=== PATIENT | male | born 1965 | race Caucasian/White ===

== ENCOUNTER 2021-11-30 09:17 | Inpatient (IN) | payer MEDICAID, OTHER ==
[2021-11-30 10:30] LABS: Basophils # (A) 0.1 k/uL (0-0.2); Basophils % (A) 1 %; Eosinophils # (A) 0.1 k/uL (0-0.7); Eosinophils % (A) 1 %; HCT 54.7 % (39.0-53.0); HGB 18.3 gm/dL (13.0-17.5); Lymphocytes # (A) 1.6 k/uL (1.0-4.8); Lymphocytes % (A) 14 %; MCH 30.3 pg (25.0-35.0); MCHC 33.5 g/dL (31.0-37.0); MCV 90.5 fL (80.0-100.0); Mean Platelet Volume 7.3; Monocytes # (A) 0.5 k/uL (0-1.0); Monocytes % (A) 4 %; Neutrophils # (A) 9.3 k/uL (1.3-7.7); Neutrophils % (A) 80 %; Platelet Count 439 k/uL (150-450); RBC 6.04 m/uL (4.30-5.90); RDW 12.7 % (11.5-15.5); WBC 11.7 k/uL (3.8-10.6)
[2021-11-30 10:40] LABS: ALT 27 U/L (4-49); AST 29 U/L (17-59); African American GFR (CKD) >90 (>60 ml/min/1.73 sqM); Albumin 4.5 g/dL (3.5-5.0); Alkaline Phosphatase 89 U/L (38-126); Anion Gap 9 mmol/L; Blood Urea Nitrogen 15 mg/dL (9-20); Calcium 9.1 mg/dL (8.4-10.2); Carbon Dioxide 25 mmol/L (22-30); Chloride 105 mmol/L (98-107); Glucose 105 mg/dL (74-99); Non-African American GFR(CKD) >90 (>60 ml/min/1.73 sqM); Potassium 4.2 mmol/L (3.5-5.1); Sodium 139 mmol/L (137-145); Total Bilirubin 0.7 mg/dL (0.2-1.3); Total Protein 7.8 g/dL (6.3-8.2)
[2021-11-30 10:48] LABS: Amphetamine Screen,Urine Not Detected (NotDetected); Barbiturate Screen,Urine Not Detected (NotDetected); Benzodiazepines Screen,Urine Not Detected (NotDetected); Cocaine Screen,Urine Not Detected (NotDetected); Methadone Screen, Urine Not Detected (NotDetected); Opiate Screen,Urine Not Detected (NotDetected); Oxycodone Screen, Urine Not Detected (NotDetected); Phencyclidine Screen,Urine Not Detected (NotDetected); Tricyclic Antidepressant,Urine Not Detected (NotDetected); Urn Cannabinoid Scrn Not Detected (NotDetected)
--- NOTE | 2021-11-30 12:20 | ED ---
Psych HPI - General Chief Complaint: Psychiatric Symptoms Stated Complaint: Mental Health Time Seen by Provider: 11/30/21 09:30 Source: patient, EMS, RN notes reviewed Mode of arrival: EMS Limitations: no limitations - History of Present Illness Initial Comments: This a 56-year-old male presents emergency Department with chief complaint of needing psychiatric help. Patient has been having hallucinations, hearing voices. 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 He does admit that his been off his psychiatric medications. - Related Data Home Medications Medication Instructions Recorded Confirmed Fluoride (Sodium) [Sodium Fluoride 1 applic DENTAL BID 11/30/21 11/30/21 5000 Plus] traZODone HCL 50 mg PO HS 11/30/21 11/30/21 Allergies Allergy/AdvReac Type Severity Reaction Status Date / Time No Known Allergies Allergy Verified 11/30/21 11:46 Review of Systems ROS Statement: Those systems with pertinent positive or pertinent negative responses have been documented in the HPI. ROS Other: All systems not noted in ROS Statement are negative. Past Medical History Past Medical History: No Reported History History of Any Multi-Drug Resistant Organisms: None Reported Past Surgical History: No Surgical Hx Reported Past Psychological History: Schizophrenia Smoking Status: Current every day smoker Past Alcohol Use History: None Reported Past Drug Use History: None Reported General Exam Limitations: altered mental status General appearance: alert, in no apparent distress Head exam: Present: atraumatic, normocephalic, normal inspection Eye exam: Present: normal appearance, PERRL, EOMI. Absent: scleral icterus, conjunctival injection, periorbital swelling ENT exam: Present: normal exam, normal oropharynx, mucous membranes moist Neck exam: Present: normal inspection, full ROM. Absent: tenderness, meningismus, lymphadenopathy Respiratory exam: Present: normal lung sounds bilaterally. Absent: respiratory distress, wheezes, rales, rhonchi, stridor Cardiovascular Exam: Present: regular rate, normal rhythm, normal heart sounds. Absent: systolic murmur, diastolic murmur, rubs, gallop, clicks Neurological exam: Present: alert Psychiatric exam: Absent: normal affect, normal mood Skin exam: Present: warm, dry, intact, normal color. Absent: rash Course Vital Signs 11/30/21 09:25 Pulse Rate 85 Respiratory 18 Rate Blood Pressure 131/82 O2 Sat by Pulse 97 Oximetry Medical Decision Making - Medical Decision Making Patient evaluated by EPS case discussed with psychiatrist recommends patient be admitted for psychiatric services. - Lab Data Result diagrams: 11/30/21 10:12 11/30/21 10:12 Lab Results 11/30/21 11/30/21 11/30/21 Range/Units 10:12 10:12 10:12 WBC 11.7 H (3.8-10.6) k/uL RBC 6.04 H (4.30-5.90) m/uL Hgb 18.3 H (13.0-17.5) gm/dL Hct 54.7 H (39.0-53.0) % MCV 90.5 (80.0-100.0) fL MCH 30.3 (25.0-35.0) pg MCHC 33.5 (31.0-37.0) g/dL RDW 12.7 (11.5-15.5) % Plt Count 439 (150-450) k/uL MPV 7.3 Neutrophils % 80 % Lymphocytes % 14 % Monocytes % 4 % Eosinophils % 1 % Basophils % 1 % Neutrophils # 9.3 H (1.3-7.7) k/uL Lymphocytes # 1.6 (1.0-4.8) k/uL Monocytes # 0.5 (0-1.0) k/uL Eosinophils # 0.1 (0-0.7) k/uL Basophils # 0.1 (0-0.2) k/uL Sodium 139 (137-145) mmol/L Potassium 4.2 (3.5-5.1) mmol/L Chloride 105 (98-107) mmol/L Carbon Dioxide 25 (22-30) mmol/L Anion Gap 9 mmol/L BUN 15 (9-20) mg/dL Creatinine 0.92 (0.66-1.25) mg/dL Est GFR (CKD-EPI)AfAm >90 (>60 ml/min/1.73 sqM) Est GFR (CKD-EPI)NonAf >90 (>60 ml/min/1.73 sqM) Glucose 105 H (74-99) mg/dL Calcium 9.1 (8.4-10.2) mg/dL Total Bilirubin 0.7 (0.2-1.3) mg/dL AST 29 (17-59) U/L ALT 27 (4-49) U/L Alkaline Phosphatase 89 (38-126) U/L Total Protein 7.8 (6.3-8.2) g/dL Albumin 4.5 (3.5-5.0) g/dL Urine Opiates Screen Not Detected (NotDetected) Ur Oxycodone Screen Not Detected (NotDetected) Urine Methadone Screen Not Detected (NotDetected) Ur Propoxyphene Screen Not Detected (NotDetected) Ur Barbiturates Screen Not Detected (NotDetected) U Tricyclic Antidepress Not Detected (NotDetected) Ur Phencyclidine Scrn Not Detected (NotDetected) Ur Amphetamines Screen Not Detected (NotDetected) U Methamphetamines Scrn Not Detected (NotDetected) U Benzodiazepines Scrn Not Detected (NotDetected) Urine Cocaine Screen Not Detected (NotDetected) U Marijuana (THC) Screen Not Detected (NotDetected) Disposition Clinical Impression: Acute psychosis Disposition: TRANSFER TO PSYCH HOSP/UNIT Condition: Fair Referrals: None,Stated [Primary Care Provider] - 1-2 days
[2021-12-01] MEDS ORDERED: MAG HYDROX/AL HYDROX/SIMETH 30 ML CUP PO PRN (21:11)
[2021-12-01] MEDS ORDERED: MAGNESIUM HYDROXIDE 2,400 MG/10 ML CUP PO PRN (21:11)
[2021-12-01] MEDS ORDERED: HALOPERIDOL LACTATE 5 MG/ML 1 ML VIAL IM PRN (21:11)
[2021-12-01] MEDS ORDERED: ACETAMINOPHEN TAB 325 MG TAB PO PRN (21:11)
[2021-12-01] MEDS ORDERED: LORazepam 2 MG/ML INJ IM PRN (21:18)
--- NOTE | 2021-12-02 00:47 | P.CONS ---
History of Present Illness - Reason for Consult Consult date: 12/01/21 - History of Present Illness The patient is a 56-year-old male with a PMH of schizophrenia who had presented to the emergency room, asking help as he felt that he was acting strangely. Patient was admitted to the mental health unit where he was seen and evaluated. The patient notes that over the past few days, he was "manic" and driving his car 11/04 all around [place] with no clear destination. He reported feeling b sunil after being brought to the hospital. He denied any active complaints at the time of interview. Denied experiencing chest discomfort, shortness of fever, chills, cough, nausea, vomiting, abdominal, diarrhea. The patient's laboratory evaluation was reviewed and was remarkable for leukocytosis of 11.7, hemoglobin 18.3, and an unremarkable UA. Patient denied tobacco, alcohol, or substance use. Review of systems: Pertinent positives and negatives as discussed in HPI, a complete review of s ystems was performed and all other systems are negative. Physical examination: General: non toxic, no distress, appears at stated age, normal weight Derm: no unusual rashes/lesions no unusual ecchymoses, warm, dry Head: atraumatic, normocephalic, symmetric Eyes: EOMI, no lid lag, anicteric sclera, pupils equal round reactive to light ENT: Nose and ears atraumatic, no thrush, no pharyngeal erythema Neck: No thyromegaly, no cervical lymphadenopathy, trachea midline, supple Mouth: no lip lesion, mucus membranes moist Cardiovascular: S1S2 reg, no murmur, positive posterior tibial pulse bilateral, no edema, capillary refill less than 2 seconds Lungs: CTA bilateral, no rhonchi, no rales , no accessory muscle use Abdominal: soft, nontender to palpation, no guarding, no appreciable organomegaly, normal bowel sounds Ext: no gross muscle atrophy, muscle strength 5 out of 5 in all 4 extremities grossly, no contractures, Neuro: CN II-XI grossly intact, light touch intact all 4 extremities, finger to nose within normal limits, Psych: Alert, oriented, appropriate affect Assessment/plan Leukocytosis, likely secondary to acute stressor -No signs of active infection at this time Psychosis -As per psychiatry Thank you for allowing us to participate in the care of this patient. We will follow peripherally. Do not hesitate to contact us with questions. Someone can be reached from the [facility] hospitalist group at all hours of the day at [phone]. Past Medical History Past Medical History: No Reported History History of Any Multi-Drug Resistant Organisms: None Reported Past Surgical History: No Surgical Hx Reported Past Psychological History: Schizophrenia Smoking Status: Current every day smoker Past Alcohol Use History: None Reported Past Drug Use History: None Reported Medications and Allergies Home Medications Medication Instructions Recorded Confirmed Type Fluoride (Sodium) [Sodium Fluoride 1 applic DENTAL BID 11/30/21 11/30/21 History 5000 Plus] traZODone HCL 50 mg PO HS 11/30/21 11/30/21 History Allergies Allergy/AdvReac Type Severity Reaction Status Date / Time No Known Allergies Allergy Verified 12/01/21 18:28 Physical Exam Vitals: Vital Signs Temp Pulse Pulse Resp BP BP Pulse Ox 12/01/21 18:29 97.5 F L 93 18 122/79 96 12/01/21 08:59 98.0 F 83 18 132/85 98 Intake and Output 12/01/21 12/01/21 12/02/21 14:59 22:59 06:59 Other: Weight 70.307 kg Results CBC & Chem 7: 11/30/21 10:12 11/30/21 10:12
[2021-12-02] MEDS: traZODone HCL 50 MG TAB PO SCH ×2 (04:29→20:00)
[2021-12-02] MEDS: NICOTINE 14MG/24HR PATCH TRANSDERM SCH ×2 (08:27→14:28)
[2021-12-02] MEDS: NON FORMULARY DRUG (Fluoride (Sodium) [Sodium Fluoride 5000 Plus] 51 GM Cream..G.) TOPICAL SCH ×2 (08:28→19:59)
[2021-12-02 09:56] LABS: Chol/HDL Ratio 4.43 Ratio; LDL Cholesterol,Calculated 133.2 mg/dL (0.0-131.0); VLDL Calculation 19.28 mg/dL (5.00-40.00)
[2021-12-02] MEDS ORDERED: risperiDONE 1 MG TAB PO STA (10:15)
[2021-12-02 12:49] LABS: Appearance,Urine Clear (Clear); Bilirubin,Urine Negative (Negative); Blood,Urine Negative (Negative); Color,Urine Yellow; Glucose,Urine (UA) 1+ (Negative); Ketones,Urine Negative (Negative); Leukocyte Esterase,Urine Negative (Negative); Nitrite,Urine Negative (Negative); PH, Urine 6.5 (5.0-8.0); Protein,Urine Negative (Negative); Specific Gravity,Urine 1.013 (1.001-1.035); Urobilinogen,Urine <2.0 mg/dL (<2.0)
--- NOTE | 2021-12-02 14:38 | P.HP ---
Psychiatric H&P - . H&P Date: 12/02/21 History & Physical: Allergies Allergy/AdvReac Type Severity Reaction Status Date / Time No Known Allergies Allergy Verified 12/01/21 18:28 Vital Signs Temp 97.9 F 12/02/21 06:57 Pulse 61 12/02/21 06:57 Resp 16 12/02/21 06:57 BP 117/59 12/02/21 06:57 Pulse Ox 96 12/01/21 18:29 Intake & Output 12/01/21 12/02/21 12/02/21 18:59 06:59 18:59 Weight 70.307 kg Laboratory Last Values WBC 11.7 k/uL (3.8-10.6) H 11/30/21 10:12 RBC 6.04 m/uL (4.30-5.90) H 11/30/21 10:12 Hgb 18.3 gm/dL (13.0-17.5) H 11/30/21 10:12 Hct 54.7 % (39.0-53.0) H 11/30/21 10:12 MCV 90.5 fL (80.0-100.0) 11/30/21 10:12 MCH 30.3 pg (25.0-35.0) 11/30/21 10:12 MCHC 33.5 g/dL (31.0-37.0) 11/30/21 10:12 RDW 12.7 % (11.5-15.5) 11/30/21 10:12 Plt Count 439 k/uL (150-450) 11/30/21 10:12 MPV 7.3 11/30/21 10:12 Neutrophils % 80 % 11/30/21 10:12 Lymphocytes % 14 % 11/30/21 10:12 Monocytes % 4 % 11/30/21 10:12 Eosinophils % 1 % 11/30/21 10:12 Basophils % 1 % 11/30/21 10:12 Neutrophils # 9.3 k/uL (1.3-7.7) H 11/30/21 10:12 Lymphocytes # 1.6 k/uL (1.0-4.8) 11/30/21 10:12 Monocytes # 0.5 k/uL (0-1.0) 11/30/21 10:12 Eosinophils # 0.1 k/uL (0-0.7) 11/30/21 10:12 Basophils # 0.1 k/uL (0-0.2) 11/30/21 10:12 Sodium 139 mmol/L (137-145) 11/30/21 10:12 Potassium 4.2 mmol/L (3.5-5.1) 11/30/21 10:12 Chloride 105 mmol/L (98-107) 11/30/21 10:12 Carbon Dioxide 25 mmol/L (22-30) 11/30/21 10:12 Anion Gap 9 mmol/L 11/30/21 10:12 BUN 15 mg/dL (9-20) 11/30/21 10:12 Creatinine 0.92 mg/dL (0.66-1.25) 11/30/21 10:12 Est GFR (CKD-EPI)AfAm >90 (>60 ml/min/1.73 sqM) 11/30/21 10:12 Est GFR (CKD-EPI)NonAf >90 (>60 ml/min/1.73 sqM) 11/30/21 10:12 Glucose 105 mg/dL (74-99) H 11/30/21 10:[address] Glu mg/dL 116 11/30/21 10:12 Hemoglobin A1c 5.7 % (0.0-6.0) 11/30/21 10:12 Calcium 9.1 mg/dL (8.4-10.2) 11/30/21 10:12 Total Bilirubin 0.7 mg/dL (0.2-1.3) 11/30/21 10:12 AST 29 U/L (17-59) 11/30/21 10:12 ALT 27 U/L (4-49) 11/30/21 10:12 Alkaline Phosphatase 89 U/L (38-126) 11/30/21 10:12 Total Protein 7.8 g/dL (6.3-8.2) 11/30/21 10:12 Albumin 4.5 g/dL (3.5-5.0) 11/30/21 10:12 Triglycerides 96.40 mg/dL (0.00-149.00) 11/30/21 10:12 Cholesterol 197.00 mg/dL (0.00-200.00) 11/30/21 10:12 LDL Cholesterol, Calc 133.2 mg/dL (0.0-131.0) H 11/30/21 10:12 VLDL Cholesterol, Calc 19.28 mg/dL (5.00-40.00) 11/30/21 10:12 HDL Cholesterol 44.50 mg/dL (40.00-60.00) 11/30/21 10:12 Cholesterol/HDL Ratio 4.43 Ratio 11/30/21 10:12 TSH 0.944 uIU/mL (0.350-5.500) 11/30/21 10:12 Urine Color Yellow 12/02/21 Unknown Urine Appearance Clear (Clear) 12/02/21 Unknown Urine pH 6.5 (5.0-8.0) 12/02/21 Unknown Ur Specific [place] 1.013 (1.001-1.035) 12/02/21 Unknown Urine Protein Negative (Negative) 12/02/21 Unknown Urine Glucose (UA) 1+ (Negative) H 12/02/21 Unknown Urine Ketones Negative (Negative) 12/02/21 Unknown Urine Blood Negative (Negative) 12/02/21 Unknown Urine Nitrite Negative (Negative) 12/02/21 Unknown Urine Bilirubin Negative (Negative) 12/02/21 Unknown Urine Urobilinogen <2.0 mg/dL (<2.0) 12/02/21 Unknown Ur Leukocyte Esterase Negative (Negative) 12/02/21 Unknown Urine Opiates Screen Not Detected (NotDetected) 11/30/21 10:12 Ur Oxycodone Screen Not Detected (NotDetected) 11/30/21 10:12 Urine Methadone Screen Not Detected (NotDetected) 11/30/21 10:12 Ur Propoxyphene Screen Not Detected (NotDetected) 11/30/21 10:12 Ur Barbiturates Screen Not Detected (NotDetected) 11/30/21 10:12 U Tricyclic Antidepress Not Detected (NotDetected) 11/30/21 10:12 Ur Phencyclidine Scrn Not Detected (NotDetected) 11/30/21 10:12 Ur Amphetamines Screen Not Detected (NotDetected) 11/30/21 10:12 U Methamphetamines Scrn Not Detected (NotDetected) 11/30/21 10:12 U Benzodiazepines Scrn Not Detected (NotDetected) 11/30/21 10:12 Urine Cocaine Screen Not Detected (NotDetected) 11/30/21 10:12 U Marijuana (THC) Screen Not Detected (NotDetected) 11/30/21 10:12 Coronavirus (PCR) Not Detected (Not Detectd) 11/30/21 13:34 12/02/21 14:38 IDENTIFYING DATA: Patient is a single, unemployed, 56-year-old male with significant history of schizophrenia presented to the hospital for acute psychotic behavior. HPI: Patient presented to the hospital on 11/30/2021, brought into the hospital under his own volition in order to decrease auditory hallucinations that he has been experiencing. The patient reports that for the past 3 days he has been nonadherent with his psychotropic medications. He states that he has not been taking his trazodone and has been unable to sleep. He denies any other psychiatric medications aside from this trazodone. However, the patient does endorse a significant history of psychosis. He states that for the past few days he has been experiencing command type auditory hallucinations that have been directing him on his drive around the [facility]. He reports that they told him to go [place] the border into [place] however when he got to the border they told to go to the hospital. The patient states that he continues to hear these auditory hallucinations. When asked who he has been living with, the patient states that he was living with his parents however he states to this provider that the voices told him that his parents are . The patient does express that he is bothered by these auditory hallucinations. He states that he has been hearing them ever since he was 32 years old. He is currently denying any visual hallucinations, paranoia, or other delusions at this time. In regards to mood, the patient denies any suicidal or homicidal ideation, intention, and/or plan. He reports no prior attempts at suicide. He does express that he has gone a few days without sleep however states that he is tired. He denies any overt manic episodes or other periods of excessive energy. He denies any increased goal-directed activity aside from the driving, or any grandiosity, impulsivity, or pressured speech. PAST PSYCHIATRIC HISTORY: Patient states that the previous diagnosis of schizophrenia. The patient states that he is currently only taking trazodone. He reports previous trials of Zyprexa and Cogentin. He states that he was last hospitalized at [facility] in [place], [place] approximately 2 years ago. He reports that he follows outpatient psychiatry with Dr. Frias. Patient denies any history of suicide attempts in the past. PMH: Past Medical History: No Reported History History of Any Multi-Drug Resistant Organisms: None Reported Past Surgical History: No Surgical Hx Reported Past Psychological History: Schizophrenia Smoking Status: Current every day smoker Past Alcohol Use History: None Reported Past Drug Use History: None Reported ALLERGIES: NO KNOWN DRUG ALLERGIES CHEMICAL DEPENDENCY HISTORY: The patient reports that he smokes half a pack per day of cigarettes. He denies any marijuana use or illicit drug use. He reports very rare alcohol use. FAMILY PSYCHIATRIC/SUBSTANCE USE HISTORY: He reports that his biological father has some sort of mental illness. He is unable to expand on this. SOCIAL HISTORY: Patient was born in [place] but was raised all over including [place] and [facility] as his adoptive father was in the . He is currently unemployed but states that he applied for SSI. He states that he is single, never , and has no children. MENTAL STATUS EXAM: General Appearance: Patient appears to be stated age is alert, directable, and attempts to cooperate. Patient appears to have slightly disheveled hygiene and grooming. Behavior: Patient is seated without any agitated behavior. Contact is appropriate. Psychomotor activity appears normal. Speech: Patient's speech is fluent and nonpressured. Mood/Affect: Patient reports their mood is doing okay, a little tired, affect is congruent and constricted. Suicidality/Homicidality: Patient denies having any homicidal ideation intent or plan. Denies any suicidal ideations intent or plan Perceptions: Patient denies any visual hallucinations and denies any auditory hallucinations Though content/process: There is no evidence of any delusional thought content and thought process is linear and goal-directed. Memory and concentration: AOX3, grossly intact for the purposes of this session. Can spell "WORLD" backwards Judgment and insight: Fair STRENGTHS/WEAKNESSES: Strength is that the patient appears to be in relatively good health and has somewhat fair insight. Weakness is that the patient has severe mental illness but is currently under medicated. INTELLECT: Below average to average IMPRESSIONS: Schizophrenia Nicotine dependence PLAN: -Patient is admitted under voluntary status to MHU for stabilization of psychiatric symptoms and safety. Patient signed adult voluntary form and medication consent and is placed in patient's chart. -Medications : Will start patient on Risperdal 1 mg by mouth twice a day for schizophrenia Trazodone 50 mg by mouth at bedtime for insomnia -Ativan and Haldol PRN for agitation/aggression -Patient was counselled on substance abuse and desired to cut back on use -Patient was informed of the risks, benefits and side effects of the medication and patient verbally consented to taking the medications. Patient signed med consent form and was placed in chart. -Internal Medicine consult to perform medical evaluation and physical. -NRT - nicotine patch - on board for discharge planning. Encourage patient to participate in groups to work on coping skills. 12/02/21 14:38
[2021-12-02] MEDS: risperiDONE 1 MG TAB PO SCH (20:00)
[2021-12-03] MEDS: LORazepam 1 MG TAB PO PRN (01:14)
[2021-12-03] MEDS: haloperidoL 5 MG TAB PO PRN (01:14)
[2021-12-03] MEDS: risperiDONE 1 MG TAB PO SCH (08:15)
[2021-12-03] MEDS: NICOTINE 14MG/24HR PATCH TRANSDERM SCH (08:15)
[2021-12-03] MEDS: NON FORMULARY DRUG (Fluoride (Sodium) [Sodium Fluoride 5000 Plus] 51 GM Cream..G.) TOPICAL SCH ×2 (08:17→20:50)
--- NOTE | 2021-12-03 11:34 | P.PN ---
Progress Note - Text Progress Note Date: 12/03/21 Interval History: Patient was seen resting in bed and was directable and agreeable to speak with investment underwriter in the office. The patient reports that he is feeling significantly better because the voices are now gone. He does acknowledge that his parents are most likely alive. He denies any suicidal or homicidal ideation, intention, and/or plan. He reports no auditory or visual hallucinations. He denies any paranoia or other delusions at this time. The patient does express that he feels "lightheaded" as a side effect of his medications. He has been adherent with his medications. He had some difficulty with sleep last night after a new patient arrived on the unit. The patient became very scared that another person was in his room. After changing rooms, the patient was able to calm down. He otherwise denies any other issues regarding his appetite or sleep. Mental Status Exam: General Appearance: Patient appears to be stated age is alert, directable, and cooperative. Behavior: Patient is calmly seated without any agitated behavior. Speech: Patient's speech is fluent and nonpressured. Mood/Affect: Mood is improving mildly, affect is congruent and blunted. Suicidality/Homicidality: Patient denies having any suicidal or homicidal ideation intent or plan. Perceptions: Patient denies any visual hallucinations and denies any auditory hallucinations Though content/process: There is no evidence of any delusional thought content and thought process is linear and goal-directed. Memory and concentration: AOX3, grossly intact for the purposes of this session Judgment and insight: Improving mildly Vital Signs Temp 97.9 F 12/02/21 06:57 Pulse 61 12/02/21 06:57 Resp 16 12/02/21 06:57 BP 117/59 12/02/21 06:57 Pulse Ox 96 12/01/21 18:29 Laboratory Results - Last 24 Hours 12/02/21 Unknown Urine Color Yellow Urine Appearance Clear Urine pH 6.5 Ur Specific [place] 1.013 Urine Protein Negative Urine Glucose (UA) 1+ H Urine Ketones Negative Urine Blood Negative Urine Nitrite Negative Urine Bilirubin Negative Urine Urobilinogen <2.0 Ur Leukocyte Esterase Negative Assessment Schizophrenia Nicotine dependence Plan: -Patient continues to meet criteria for inpatient psychiatric admission for symptom stabilization and safety. Patient has signed adult voluntary form and medication consent and was placed in patient's chart. -Medications: Increase Risperdal to 1 mg by mouth every morning and 2 mg by mouth daily at bedtime for management of schizophrenia Continue trazodone 50 mg daily at bedtime for insomnia -When necessary Ativan and Haldol for agitation/aggression. -NRT - nicotine patch -SW on board for discharge planning. Encouraged the patient to participate in milieu.
[2021-12-03] MEDS: traZODone HCL 50 MG TAB PO SCH (20:47)
[2021-12-03] MEDS ORDERED: risperiDONE 2 MG TAB PO SCH (21:00)
[2021-12-04] MEDS: LORazepam 1 MG TAB PO PRN (01:00)
[2021-12-04] MEDS: haloperidoL 5 MG TAB PO PRN (01:40)
[2021-12-04] MEDS: NICOTINE 14MG/24HR PATCH TRANSDERM SCH (07:58)
[2021-12-04] MEDS: NON FORMULARY DRUG (Fluoride (Sodium) [Sodium Fluoride 5000 Plus] 51 GM Cream..G.) TOPICAL SCH ×2 (08:00→21:03)
[2021-12-04] MEDS ORDERED: risperiDONE 1 MG TAB PO SCH (09:00)
--- NOTE | 2021-12-04 11:22 | P.PN ---
Progress Note - Text Progress Note Date: 12/04/21 Interval History: Patient was seen resting in bed and was directable and agreeable to speak with newswriter in the office. The patient was noted by staff to exhibit bizarre behavior. He has had some difficulty with sleep last night. The other night, the patient was noted by staff to be alone in the group lounge washing his genitals in the basin with the lights off. When asked about this, the patient reports today that he feels like he has "enzymes all over my body." When asked what this is doing to him, the patient is unable to articulate well but is fixated that he has enzymes over his body that are making him feel bad. He is otherwise not reporting any auditory or visual hallucinations. He attempts to give a phone number to this provider however instead of the standard 10 numbers in a phone number he provides 12. Also noted that the number he provided the s ocial worker did not work. He is otherwise not reporting any suicidal or homicidal ideation, intention, and/or plan. He is denying any overt auditory or visual hallucinations. He reports no paranoia. He has been in adherent with his medications but reports some sedation and lightheadedness as a side effect. Mental Status Exam: General Appearance: Patient appears to be stated age is alert, directable, and cooperative. Behavior: Patient is calmly seated without any agitated behavior. Speech: Patient's speech is fluent and nonpressured. Monotone. Mood/Affect: Mood is "okay", affect is congruent and blunted. Suicidality/Homicidality: Patient denies having any suicidal or homicidal ideation intent or plan. Perceptions: Patient denies any visual hallucinations and denies any auditory hallucinations Though content/process: The patient appears to be delusional with some delusions parasitosis and magical thinking. Disorganized. Memory and concentration: AOX3, grossly intact for the purposes of this session Judgment and insight: Improving mildly Vital Signs Temp 97.7 F 12/04/21 06:55 Pulse 100 12/04/21 06:55 Resp 18 12/04/21 06:55 BP 120/72 12/04/21 06:55 Pulse Ox 95 12/04/21 06:55 Assessment Schizophrenia Nicotine dependence Plan: -Patient continues to meet criteria for inpatient psychiatric admission for sy mptom stabilization and safety. Patient has signed adult voluntary form and medication consent and was placed in patient's chart. -Medications: Increase Risperdal to 1 mg by mouth every morning and 3 mg by mouth daily at bedtime for management of schizophrenia. Consider titration of medication over the weekend. Continue trazodone 50 mg daily at bedtime for insomnia -When necessary Ativan and Haldol for agitation/aggression. -NRT - nicotine patch -SW on board for discharge planning. Encouraged the patient to participate in milieu.
[2021-12-04] MEDS: risperiDONE 1 MG TAB PO SCH (21:00)
[2021-12-04] MEDS: traZODone HCL 50 MG TAB PO SCH (21:01)
[2021-12-05 06:45] VITALS: RESP 14
[2021-12-05] MEDS: NICOTINE 14MG/24HR PATCH TRANSDERM SCH (09:33)
[2021-12-05] MEDS: risperiDONE 2 MG TAB PO SCH (09:33)
[2021-12-05] MEDS: NON FORMULARY DRUG (Fluoride (Sodium) [Sodium Fluoride 5000 Plus] 51 GM Cream..G.) TOPICAL SCH ×2 (09:34→22:29)
--- NOTE | 2021-12-05 11:10 | P.PN ---
Progress Note - Text Progress Note Date: 12/05/21 Interval History: Patient was seen in his room and was directable and agreeable to speak with check writer salesperson. He stated he feels a little dizzy because he has been walking a lot. He stated he was walking because he wanted to get away from people. He thinks that the people are out to get him. He believes that the only way for him is to be away from people. At this time patient denies any suicidal or homical ideations, intent or plan. Patient denies any auditory, visual hallucinations and denies any paranoia or delusions. Patient denies any side effects from the medications and has been compliant with meds. Mental Status Exam: General Appearance: Patient appears to be stated age is alert, directable, and cooperative. Behavior: Patient is calmly seated without any agitated behavior. Speech: Patient's speech is fluent and nonpressured. Mood/Affect: Mood is improving mildly, affect is congruent and constricted. Suicidality/Homicidality: Patient denies having any suicidal or homicidal ideation intent or plan. Perceptions: Patient denies any visual hallucinations and denies any auditory hallucinations Though content/process: There is no evidence of any delusional thought content and thought process is linear and goal-directed. Memory and concentration: AOX3, grossly intact for the purposes of this session Judgment and insight: Improving mildly Assessment This patient is extremely paranoid and psychotic and continues to necessitate hospitalization to stabilize his mental status. Plan: -Patient continues to meet criteria for inpatient psychiatric admission for symptom stabilization and safety. -Medications: Continue medications as before. -When necessary Ativan and Haldol for agitation/aggression. -SW on board for discharge planning. Encouraged the patient to participate in milieu.
[2021-12-05] MEDS: risperiDONE 1 MG TAB PO SCH (20:57)
[2021-12-05] MEDS: traZODone HCL 50 MG TAB PO SCH (20:57)
[2021-12-05] MEDS: haloperidoL 5 MG TAB PO PRN (23:54)
[2021-12-06] MEDS: LORazepam 1 MG TAB PO PRN (01:12)
[2021-12-06] MEDS: NICOTINE 14MG/24HR PATCH TRANSDERM SCH (08:42)
[2021-12-06] MEDS: NON FORMULARY DRUG (Fluoride (Sodium) [Sodium Fluoride 5000 Plus] 51 GM Cream..G.) TOPICAL SCH ×2 (08:44→22:12)
[2021-12-06] MEDS: risperiDONE 2 MG TAB PO SCH (08:44)
--- NOTE | 2021-12-06 11:10 | P.PN ---
Progress Note - Text Progress Note Date: 12/06/21 Interval History: Patient was seen in my office and was directable and agreeable to speak with personal lines underwriter. Patient continues to be delusional and thinks that his tear ducts are closed. He still thinks people are out to get him. He stated that to avoid that he was walking for miles in a miles.. At this time patient denies any suicidal or homical ideations, intent or plan. Patient denies any auditory, visual hallucinations . Patient denies any side effects from the medications and has been compliant with meds. Mental Status Exam: General Appearance: Patient appears to be stated age is alert, directable, and cooperative. Behavior: Patient is calmly seated without any agitated behavior. Speech: Patient's speech is fluent and nonpressured. Mood/Affect: Mood is improving mildly, affect is congruent and constricted. Suicidality/Homicidality: Patient denies having any suicidal or homicidal ideation intent or plan. Perceptions: Patient denies any visual hallucinations and denies any auditory hallucinations Though content/process: There is no evidence of any delusional thought content and thought process is linear and goal-directed. Memory and concentration: AOX3, grossly intact for the purposes of this session Judgment and insight: Improving mildly Assessment This patient continues to be delusional, psychotic and out of touch with reality. Plan: -Patient continues to meet criteria for inpatient psychiatric admission for symptom stabilization and safety. -Medications: Continue medication as before. Patient stated he was smoking half a pack of cigarettes per day prior to coming here. -When necessary Ativan and Haldol for agitation/aggression. -SW on board for discharge planning. Encouraged the patient to participate in milieu.
[2021-12-06] MEDS: NICOTINE GUM (POLACRILEX) 2 MG GUM BUCCAL PRN ×3 (13:29→20:31)
[2021-12-06] MEDS: risperiDONE 1 MG TAB PO SCH (20:28)
[2021-12-06] MEDS: traZODone HCL 50 MG TAB PO SCH (20:29)
[2021-12-07] MEDS: NON FORMULARY DRUG (Fluoride (Sodium) [Sodium Fluoride 5000 Plus] 51 GM Cream..G.) TOPICAL SCH ×2 (08:38→20:35)
[2021-12-07] MEDS: NICOTINE GUM (POLACRILEX) 2 MG GUM BUCCAL PRN (08:41)
[2021-12-07] MEDS: risperiDONE 2 MG TAB PO SCH (08:41)
[2021-12-07] MEDS: NICOTINE 14MG/24HR PATCH TRANSDERM SCH (08:55)
--- NOTE | 2021-12-07 11:35 | P.PN ---
Progress Note - Text Progress Note Date: 12/07/21 Interval History: Patient was seen resting in bed and was directable and agreeable to speak with comic writer in the office. Patient reports that he is feeling significantly better. He reports that with the medications, he is not expressing any visual hallucinations and his auditory hallucinations have decreased significantly to only 1 voice that does not occur often. He reports no paranoia or other delusions at this time. He expresses future orientation and a desire to go back home as well as see his girlfriend. He is denying any suicidal or homicidal ideation, intention, and/or plan. He is denying any side effects of the medications and has been in adherent. He reports no issues regarding his sleep or his appetite. Mental Status Exam: General Appearance: Patient appears to be stated age is alert, directable, and cooperative. Behavior: Patient is calmly seated without any agitated behavior. Speech: Patient's speech is fluent and nonpressured. Monotone. Mood/Affect: Mood is "feeling better", affect is congruent and with appropriate range. Suicidality/Homicidality: Patient denies having any suicidal or homicidal ideation intent or plan. Perceptions: Patient denies any visual hallucinations and denies any auditory hallucinations Though content/process: No delusional thought content is endorsed at this time. Thought process appears to be linear and logical in short conversation. Memory and concentration: AOX3, grossly intact for the purposes of this session Judgment and insight: Improving mildly Vital Signs Temp 98.7 F 12/07/21 07:06 Pulse 115 H 12/07/21 07:06 Resp 14 12/05/21 06:44 BP 116/78 12/07/21 07:06 Pulse Ox 96 12/07/21 07:06 Intake & Output 12/06/21 12/07/21 12/07/21 18:59 06:59 18:59 Weight 71.8 kg Assessment Schizophrenia Nicotine dependence Plan: -Patient continues to meet criteria for inpatient psychiatric admission for symptom stabilization and safety. Patient has signed adult voluntary form and medication consent and was placed in patient's chart. -Medications: We will administer Risperdal Consta 25 mg IM today. We'll discontinue oral Risperdal tomorrow in anticipation for discharge. Continue trazodone 50 mg daily at bedtime for insomnia -When necessary Ativan and Haldol for agitation/aggression. -NRT - nicotine patch -SW on board for discharge planning. Encouraged the patient to participate in milieu.
[2021-12-07] MEDS: traZODone HCL 50 MG TAB PO SCH (20:36)
[2021-12-07] MEDS: risperiDONE 1 MG TAB PO SCH (20:36)
[2021-12-07] MEDS: LORazepam 1 MG TAB PO PRN (23:20)
[2021-12-08 07:09] VITALS: BP 120/75; PULSE 117; TEMP 98
[2021-12-08] MEDS: NON FORMULARY DRUG (Fluoride (Sodium) [Sodium Fluoride 5000 Plus] 51 GM Cream..G.) TOPICAL SCH (08:25)
[2021-12-08] MEDS: NICOTINE 14MG/24HR PATCH TRANSDERM SCH (08:25)
[2021-12-08] MEDS: risperiDONE 2 MG TAB PO SCH (08:58)
--- NOTE | 2021-12-08 12:01 | P.DS ---
Providers Date of admission: 12/01/21 16:45 Expected date of discharge: 12/08/21 Attending physician: Miles Bernard MD Consults: 12/01/21 21:11 Consult Physician Routine Consulting Provider: Delmis Urrutia Consult Reason/Comments: H&P and medical Do you want consulting provider notified?: Yes Primary care physician: Stated None - Discharge Diagnosis(es) (1) Schizophrenia Current Visit: Yes Status: Acute Priority: High (2) Nicotine dependence Current Visit: Yes Status: Chronic Priority: Medium Hospital Course: Admission HPI: Patient is a single, unemployed, 56-year-old male with significant history of schizophrenia presented to the hospital for acute psychotic behavior. Patient presented to the hospital on 11/30/2021, brought into the hospital under his own volition in order to decrease auditory hallucinations that he has been experiencing. The patient reports that for the past 3 days he has been nonadherent with his psychotropic medications. He states that he has not been taking his trazodone and has been unable to sleep. He denies any other psychiatric medications aside from this trazodone. However, the patient does endorse a significant history of psychosis. He states that for the past few days he has been experiencing command type auditory hallucinations that have been directing him on his drive around the [facility]. He reports that they told him to go [place] the border into [place] however when he got to the border they told to go to the hospital. The patient states that he continues to hear these sue tory hallucinations. When asked who he has been living with, the patient states that he was living with his parents however he states to this provider that the voices told him that his parents are . The patient does express that he is bothered by these auditory hallucinations. He states that he has been hearing them ever since he was 32 years old. He is currently denying any visual halluci nations, paranoia, or other delusions at this time. In regards to mood, the patient denies any suicidal or homicidal ideation, intention, and/or plan. He reports no prior attempts at suicide. He does express that he has gone a few days without sleep however states that he is tired. He denies any overt manic episodes or other periods of excessive energy. He denies any increased goal-directed activity aside from the driving, or any grandiosity, impulsivity, or pressured speech. Patient states that the previous diagnosis of schizophrenia. The patient states that he is currently only taking trazodone. He reports previous trials of Zyprexa and Cogentin. He states that he was last hospitalized at [facility] in [place], [place] approximately 2 years ago. He reports that he follows outpatient psychiatry with Dr. Frias. Patient denies any history of suicide attempts in the past. Hospital course: Upon admission to the unit patient was initially presenting as overtly psychotic and disorganized. He is endorsing both auditory and visual hallucinations as well as paranoia and other delusions. Patient was however directable and agreeable to commence treatment. Patient got along well with other patients on the unit and followed unit protocol. Patient was compliant with the medications and denied any side effects throughout hospital course. Patient was started on Risperdal for management of acute psychosis. Patient spoke of his stressors and engaged in therapy both group and individual. Patient was also seen by medical team for history and physical exam. When the course of the hospitalization, the patient's Risperdal was gradually titrated and the patient displayed a significant response to the medication. He became more linear and logical conversation had a significant decrease in his psychotic symptoms. He developed better insight and judgment. He displayed a significant improvement in his mood as well. He attended groups and participated in individual and milieu therapies. On the day of discharge, the patient is denying any suicidal or homicidal ideation, intention, and/or plan. He reports that his auditory hallucinations decreased significantly to once to voices per day. He reports that this is manageable. He denies any visual hallucinations. His been adherent with his medications and reports no significant side effects. The patient was counseling appointments medication and hence an appropriate outpatient follow-up. The patient does not have a significant history of substance use however was counseled on abstaining from all substances including alcohol and marijuana. Prior to discharge, family meeting will be arranged by social sciences instructor to answer any questions and ensure safety. Mental status exam: General Appearance: Patient appears to be stated age is alert, pleasant, and cooperative. Patient is in no acute distress and has fair hygiene and grooming Behavior: Patient is calmly seated without any agitated behavior. Speech: Patient's speech is fluent and nonpressured. Mood/Affect: Patient reports their mood is "much better", affect is congruent and euthymic to bright. Suicidality/Homicidality: Patient denies having any suicidal or homicidal ideation intent or plan. Perceptions: The patient does report auditory hallucinations but states that that is much more manageable and has decreased significantly. He denies any visual hallucinations. Though content/process: There is no evidence of any delusional thought content and thought process is linear and goal-directed. The patient is future oriented. Memory and concentration: AOX3, grossly intact for the purposes of this session. Can spell "WORLD" backwards correctly. Judgment and insight: Improved with guarded prognosis Vital Signs Temp 98 F 12/08/21 07:09 Pulse 117 H 12/08/21 07:09 Resp 14 12/05/21 06:44 BP 120/75 12/08/21 07:09 Pulse Ox 96 12/08/21 07:09 Laboratory Results WBC 11.7 k/uL (3.8-10.6) H 11/30/21 10:12 RBC 6.04 m/uL (4.30-5.90) H 11/30/21 10:12 Hgb 18.3 gm/dL (13.0-17.5) H 11/30/21 10:12 Hct 54.7 % (39.0-53.0) H 11/30/21 10:12 MCV 90.5 fL (80.0-100.0) 11/30/21 10:12 MCH 30.3 pg (25.0-35.0) 11/30/21 10:12 MCHC 33.5 g/dL (31.0-37.0) 11/30/21 10:12 RDW 12.7 % (11.5-15.5) 11/30/21 10:12 Plt Count 439 k/uL (150-450) 11/30/21 10:12 MPV 7.3 11/30/21 10:12 Neutrophils % 80 % 11/30/21 10:12 Lymphocytes % 14 % 11/30/21 10:12 Monocytes % 4 % 11/30/21 10:12 Eosinophils % 1 % 11/30/21 10:12 Basophils % 1 % 11/30/21 10:12 Neutrophils # 9.3 k/uL (1.3-7.7) H 11/30/21 10:12 Lymphocytes # 1.6 k/uL (1.0-4.8) 11/30/21 10:12 Monocytes # 0.5 k/uL (0-1.0) 11/30/21 10:12 Eosinophils # 0.1 k/uL (0-0.7) 11/30/21 10:12 Basophils # 0.1 k/uL (0-0.2) 11/30/21 10:12 Sodium 139 mmol/L (137-145) 11/30/21 10:12 Potassium 4.2 mmol/L (3.5-5.1) 11/30/21 10:12 Chloride 105 mmol/L (98-107) 11/30/21 10:12 Carbon Dioxide 25 mmol/L (22-30) 11/30/21 10:12 Anion Gap 9 mmol/L 11/30/21 10:12 BUN 15 mg/dL (9-20) 11/30/21 10:12 Creatinine 0.92 mg/dL (0.66-1.25) 11/30/21 10:12 Est GFR (CKD-EPI)AfAm >90 (>60 ml/min/1.73 sqM) 11/30/21 10:12 Est GFR (CKD-EPI)NonAf >90 (>60 ml/min/1.73 sqM) 11/30/21 10:12 Glucose 105 mg/dL (74-99) H 11/30/21 10:[address] Glu mg/dL 116 11/30/21 10:12 Hemoglobin A1c 5.7 % (0.0-6.0) 11/30/21 10:12 Calcium 9.1 mg/dL (8.4-10.2) 11/30/21 10:12 Total Bilirubin 0.7 mg/dL (0.2-1.3) 11/30/21 10:12 AST 29 U/L (17-59) 11/30/21 10:12 ALT 27 U/L (4-49) 11/30/21 10:12 Alkaline Phosphatase 89 U/L (38-126) 11/30/21 10:12 Total Protein 7.8 g/dL (6.3-8.2) 11/30/21 10:12 Albumin 4.5 g/dL (3.5-5.0) 11/30/21 10:12 Triglycerides 96.40 mg/dL (0.00-149.00) 11/30/21 10:12 Cholesterol 197.00 mg/dL (0.00-200.00) 11/30/21 10:12 LDL Cholesterol, Calc 133.2 mg/dL (0.0-131.0) H 11/30/21 10:12 VLDL Cholesterol, Calc 19.28 mg/dL (5.00-40.00) 11/30/21 10:12 HDL Cholesterol 44.50 mg/dL (40.00-60.00) 11/30/21 10:12 Cholesterol/HDL Ratio 4.43 Ratio 11/30/21 10:12 TSH 0.944 uIU/mL (0.350-5.500) 11/30/21 10:12 Urine Color Yellow 12/02/21 Unknown Urine Appearance Clear (Clear) 12/02/21 Unknown Urine pH 6.5 (5.0-8.0) 12/02/21 Unknown Ur Specific [place] 1.013 (1.001-1.035) 12/02/21 Unknown Urine Protein Negative (Negative) 12/02/21 Unknown Urine Glucose (UA) 1+ (Negative) H 12/02/21 Unknown Urine Ketones Negative (Negative) 12/02/21 Unknown Urine Blood Negative (Negative) 12/02/21 Unknown Urine Nitrite Negative (Negative) 12/02/21 Unknown Urine Bilirubin Negative (Negative) 12/02/21 Unknown Urine Urobilinogen <2.0 mg/dL (<2.0) 12/02/21 Unknown Ur Leukocyte Esterase Negative (Negative) 12/02/21 Unknown Urine Opiates Screen Not Detected (NotDetected) 11/30/21 10:12 Ur Oxycodone Screen Not Detected (NotDetected) 11/30/21 10:12 Urine Methadone Screen Not Detected (NotDetected) 11/30/21 10:12 Ur Propoxyphene Screen Not Detected (NotDetected) 11/30/21 10:12 Ur Barbiturates Screen Not Detected (NotDetected) 11/30/21 10:12 U Tricyclic Antidepress Not Detected (NotDetected) 11/30/21 10:12 Ur Phencyclidine Scrn Not Detected (NotDetected) 11/30/21 10:12 Ur Amphetamines Screen Not Detected (NotDetected) 11/30/21 10:12 U Methamphetamines Scrn Not Detected (NotDetected) 11/30/21 10:12 U Benzodiazepines Scrn Not Detected (NotDetected) 11/30/21 10:12 Urine Cocaine Screen Not Detected (NotDetected) 11/30/21 10:12 U Marijuana (THC) Screen Not Detected (NotDetected) 11/30/21 10:12 Coronavirus (PCR) Not Detected (Not Detectd) 11/30/21 13:34 Impression: Schizophrenia Nicotine dependence Plan: -Continue with discharge today as patient has improved and stabilized psychiatrically and is not currently an imminent threat to himself and/or others. Patient will remain at chronically elevated risk for harm to self and/or others due to his severity of mental illness and his history of nonadherence with treatment. -Continue medications: Risperdal Consta 25 mg IM was administered on 12/07/2021. Next dose is due 12/21/2021. Trazodone 50 mg at bedtime for insomnia. -Patient was counseled on the need for medication compliance and appropriate follow-up at mental health and also primary care for medical issues. Patient verbalized understanding and agreed. -Social work to arrange for and conduct family meeting to ensure safety upon discharge and answer any questions/concerns. Social work also to arrange for patients follow up appointments with [facility] for psychiatric care along with follow up with primary care provider. -Patient counseled on abstaining from recreational drugs and marijuana and alcohol. Was informed/educated on the adverse effects on their physical and mental health. Patient verbally agreed and understood. -Patient was instructed to return to the hospital or seek immediate medical care if their psychiatric or medical symptoms do worsen or reoccur. -Psychoeducation and supportive therapy provided to patient. Risks and benefits of pharmacological treatment versus the risks and benefits of nontreatment weight and discussed. Informed consent discussion held. Common side effects of psychotropics discussed such as, but not limited to headache, GI disturbance, sexual dysfunction, movement disorders, sedation, and orthostatic hypotension. Life threatening and blackbox warnings of prescribed medications also discussed. Potential risks of operating a vehicle or heavy machinery discussed with patient at length. Advised on importance of compliance and a reliable and responsible manner. Patient advised to review FDA consumer labeling of all medications prior to taking. Patient verbalized understanding of potential risks, and agrees with current treatment plan. Patient advised to medically contact physician/emergency personnel if any acute changes in condition occur. Allergies Allergy/AdvReac Type Severity Reaction Status Date / Time No Known Allergies Allergy Verified 12/01/21 18:28 Patient Condition at Discharge: Stable Plan - Discharge Summary Discharge Rx Participant: No New Discharge Prescriptions: New Nicotine 14Mg/24Hr Patch [Habitrol] 1 patch TRANSDERM DAILY 30 Days patch risperiDONE MICROSPHERES [RisperDAL CONSTA] 25 mg IM [id number] 1 Days each traZODone HCL [Desyrel] 50 mg PO HS 30 Days tab Continue Fluoride (Sodium) [Sodium Fluoride 5000 Plus] 1 applic DENTAL BID Discontinued traZODone HCL 50 mg PO HS Discharge Medication List Fluoride (Sodium) [Sodium Fluoride 5000 Plus] 1 applic DENTAL BID 11/30/21 [History] Nicotine 14Mg/24Hr Patch [Habitrol] 1 patch TRANSDERM DAILY 30 Days patch 12/08/21 [Rx] risperiDONE MICROSPHERES [RisperDAL CONSTA] 25 mg IM [id number] 1 Days each 12/08/21 [Rx] traZODone HCL [Desyrel] 50 mg PO HS 30 Days tab 12/08/21 [Rx] Follow up Appointment(s)/Referral(s): [facility] [NON-STAFF] - 1 Week Activity/Diet/Wound Care/Special Instructions: Activity and diet as tolerated. Avoid the use of street drugs and alcohol. Take all medications as prescribed. When you are in need of refills on your medications please contact your medical provider and/or outpatient psychiatrist to have this done. Please go to scheduled outpatient appointment for aftercare treatment. If symptoms return or become worse, call the crisis line at and/or go to the nearest emergency room for evaluation Discharge Disposition: HOME SELF-CARE
== END 2021-12-08 13:27 | disposition home or self-care (01) | DRG 885 ==
LOC: EC 09:17 → 3MHU 12-01 16:45
PROVIDERS: ADMIT Psychiatry & Neurology Psychiatry; ATTEND Psychiatry & Neurology Psychiatry
DX: F20.9 Schizophrenia, unspecified (principal); D72.829 Elevated white blood cell count, unspecified; F17.210 Nicotine dependence, cigarettes, uncomplicated; G47.00 Insomnia, unspecified; Z56.0 Unemployment, unspecified; Z79.899 Other long term (current) drug therapy; Z20.822 Contact with and (suspected) exposure to COVID-19
CPT/HCPCS: 36415; 80053; 80061; 80306; 81003; 82075; 83036; 84443; 85025; 87635; 99285